=== PATIENT | female | born 1985 | race Two or more races ===

== ENCOUNTER 2021-09-17 15:39 | Outpatient (CLI) | payer OTHER | END 2021-09-17 16:15 | disposition home or self-care (01) | LOC: PRENATAL 15:39 | PROVIDERS: ATTEND Obstetrics & Gynecology Maternal & Fetal Medicine | DX: O99.891 Other specified diseases and conditions complicating pregnancy (principal) ==

== ENCOUNTER 2021-10-17 15:29 | Outpatient (CLI) | payer OTHER | END 2021-10-17 16:54 | disposition home or self-care (01) | LOC: PRENATAL 15:29 | PROVIDERS: ATTEND Obstetrics & Gynecology Maternal & Fetal Medicine | DX: O35.0XX0 Maternal care for (suspected) central nervous system malformation in fetus, not applicable or unspecified (principal); O35.3XX0 Maternal care for (suspected) damage to fetus from viral disease in mother, not applicable or unspecified; O99.891 Other specified diseases and conditions complicating pregnancy ==

== ENCOUNTER 2022-02-26 09:25 | Inpatient (IN) | payer OTHER ==
[~2022-02-26] VITALS: Ht 177.8 cm; Wt 73.5 kg
[2022-02-26] MEDS ORDERED: PRENATAL TABLE1 EAC5 PO (11:03)
== END 2022-02-28 14:46 | disposition home or self-care (01) | DRG 807 ==
LOC: OB/GYN 09:25 → LDR 09:25 → OB/GYN 18:43
PROVIDERS: ADMIT Obstetrics & Gynecology; ATTEND Obstetrics & Gynecology
PROC: 10E0XZZ Delivery of Products of Conception, External Approach (ICD-10-PCS; principal; 2022-02-26)
PROC: 4A1HXCZ Monitoring of Products of Conception, Cardiac Rate, External Approach (ICD-10-PCS; 2022-02-26)
DX: O80 Encounter for full-term uncomplicated delivery (principal); Z37.0 Single live birth; Z3A.39 39 weeks gestation of pregnancy; Z20.822 Contact with and (suspected) exposure to COVID-19